=== PATIENT | male | born 1980 | race Caucasian/White ===

== ENCOUNTER 2017-08-03 10:10 | Emergency (ER) | payer BC ==
[2017-08-03] MEDS ORDERED: Ketorolac 60 MG/2 ML SDV IM ONE (10:50)
--- NOTE | 2017-08-03 11:06 | EDM.PDOC ---
ED HPI GENERAL MEDICAL PROBLEM - General Chief Complaint: Back Pain or Injury Stated Complaint: LOWER BACK PAIN Time Seen by Provider: 08/03/17 10:40 Source of Information: Reports: Patient History Limitations: Reports: No Limitations - History of Present Illness INITIAL COMMENTS - FREE TEXT/NARRATIVE: HISTORY AND PHYSICAL: History of present illness: [Patient comes to the emergency room complaining of low back pain. Does have been present since June 30. He has seen his chiropractor was done adjustments patient has not seen any improvement in his low back pain. He reports that he usually has a flareup of pain in his low back once a year, but it does not typically last this long. Pain is to the middle of his back and radiates bilaterally. Pain is in his buttocks and the back of both thighs. He denies radiation of pain down his lower leg or into his foot. Denies numbness and tingling. He's had no weakness to his lower extremities or feet. Denies difficulty with urinating and having bowel movements. No episodes of incontinence. No fever or chills. States she's otherwise felt well. Hx of sleep apnea.] Review of systems: As per history of present illness and below otherwise all systems reviewed and negative. Past medical history: As per history of present illness and as reviewed below otherwise noncontributory. Surgical history: As per history of present illness and as reviewed below otherwise noncontributory. Social history: No reported history of drug or alcohol abuse. Family history: As per history of present illness and as reviewed below otherwise noncontributory. Physical exam: HEENT: Atraumatic, normocephalic. Oral mucous membranes are pink and moist. Lungs: Clear to auscultation, breath sounds equal bilaterally. Heart: S1S2, regular rate and rhythm. Abdomen: Obese. Soft, nondistended, nontender. Pelvis: Stable nontender. Genitourinary: Deferred. Rectal: Deferred. Back: No suspicious rashes or lesions. No spinal tenderness w/ palpation. No CVA tenderness. Negative straight leg raise. Decreased ROM w/ back flexion and bilateral flexion. Patellar reflexes are 2+ and equal bilat. Extremities: Atraumatic, negative for cords or calf pain. Neurovascular unremarkable. Neuro: Awake, alert, oriented. Motor and sensory unremarkable throughout. Exam nonfocal. Diagnostics: [L/S spine x-rays] Therapeutics: [Toradol 60 mg IM] Impression: [low back pain] Plan: [Discussed w/ patient that x-rays show L5-S1 anterolisthesis. Recommend follow- up with PCP to discuss if MRI is needed versus PT. Continue [id number] analgesics when necessary. Return to ER as needed as discussed.] Definitive disposition and diagnosis as appropriate pending reevaluation and review of above. Lower Back Pain Score (Numeric/FACES): 8 - Related Data Allergies Allergy/AdvReac Type Severity Reaction Status Date / Time Purex Laundry Soap Allergy Rash Uncoded 08/03/17 10:26 Home Meds: Home Meds Albuterol Sulfate [Albuterol Sulfate HFA] 1 puff INH PRN 08/23/13 [History] Past Medical History - Past Health History Medical/Surgical History: Denies Medical/Surgical History Social & Family History - Family History Family Medical History: Noncontributory - Tobacco Use Smoking Status *Q: Light Tobacco Smoker Years of Tobacco use: 19 Packs/Tins Daily: 0.5 Used Tobacco, but Quit: No Second Hand Smoke Exposure: No - Caffeine Use Caffeine Use: Reports: None - Recreational Drug Use Recreational Drug Use: No ED ROS GENERAL - Review of Systems Review Of Systems: ROS reveals no pertinent complaints other than HPI. ED EXAM,LOWER BACK PAIN/INJURY - Physical Exam Exam: See Below Course - Vital Signs Last Recorded V/S: Last Vital Signs Temp 96.5 F 08/03/17 10:23 Pulse 89 08/03/17 10:23 Resp 20 08/03/17 10:23 BP 141/87 H 08/03/17 10:23 Pulse Ox 98 08/03/17 10:23 - Orders/Labs/Meds Meds: Medications Discontinued Medications Generic Name Dose Route Start Last Admin Trade Name Freq PRN Reason Stop Dose Admin Ketorolac Tromethamine 60 mg 08/03/17 10:50 08/03/17 11:15 Toradol IM 08/03/17 10:51 60 mg ONETIME ONE Administration Departure - Departure Time of Disposition: 12:10 Disposition: Home, Self-Care 01 Condition: Good Clinical Impression: Low back pain - Discharge Information Referrals: PCP,None [Primary Care Provider] - Forms: ED Department Discharge Additional Instructions: The following information is given to patients seen in the emergency department who are being discharged to home. This information is to outline your options for follow-up care. We provide all patients seen in our emergency department with a follow-up referral. The need for follow-up, as well as the timing and circumstances, are variable depending upon the specifics of your emergency department visit. If you don't have a primary care physician on staff, we will provide you with a referral. We always advise you to contact your personal physician following an emergency department visit to inform them of the circumstance of the visit and for follow-up with them and/or the need for any referrals to a consulting specialist. The emergency department will also refer you to a specialist when appropriate. This referral assures that you have the opportunity for follow-up care with a specialist. All of these measure are taken in an effort to provide you with optimal care, which includes your follow-up. Under all circumstances we always encourage you to contact your private physician who remains a resource for coordinating your care. When calling for follow-up care, please make the office aware that this follow-up is from your recent emergency room visit. If for any reason you are refused follow-up, please contact the [facility] emergency department at and asked to speak to the emergency department charge nurse. [address] [address] Follow-up with your local primary care provider or at the clinic listed above in 48-72 hours. Alternate Tylenol with ibuprofen. Heating pad or ice pack as needed. Return to ER as needed as discussed.
--- NOTE | 2017-08-03 11:52 | CR ---
EXAMINATION: Lumbar spine HISTORY: Low back pain COMPARISON: None TECHNIQUE: AP and lateral views FINDINGS: Minimal anterolisthesis of L5 on S1, otherwise the lumbar spinal alignment is normal. Minim al wedging of the L1 vertebral body. Vertebral body heights otherwise appear maintained. SI joints ar e symmetric. No fracture or acute osseous abdomen body. IMPRESSION: 1. Grade 1 anterolisthesis of L5 on S1, otherwise unremarkable lumbar spine.
== END 2017-08-03 12:28 | disposition home or self-care (01) ==
LOC: MW.ED 10:10
DX: M54.5 Low back pain (principal); F17.210 Nicotine dependence, cigarettes, uncomplicated
CPT/HCPCS: 72100; 96372; 99283; J1885

== ENCOUNTER 2022-01-06 16:08 | Emergency (ER) | payer BC | END 2022-01-06 20:45 | disposition home or self-care (01) | LOC: MW.ED 16:08 | DX: R60.0 Localized edema (principal); M79.89 Other specified soft tissue disorders; F17.210 Nicotine dependence, cigarettes, uncomplicated; Z91.048 Other nonmedicinal substance allergy status | CPT/HCPCS: 73610-26-LT; 73610-LT; 99283 ==

== ENCOUNTER 2023-05-29 12:26 | Emergency (ER) | payer BC ==
[2023-05-29] MEDS ORDERED: methylPREDNISolone Sodium Succinate 125 MG/2 ML SDV IM ONE (13:16)
[2023-05-29] MEDS ORDERED: Acetaminophen/HYDROcodone 325-5 MG Tab PO ONE (13:20)
== END 2023-05-29 13:59 | disposition home or self-care (01) ==
LOC: MW.ED 12:26
DX: M54.41 Lumbago with sciatica, right side (principal); J45.909 Unspecified asthma, uncomplicated; Z79.899 Other long term (current) drug therapy; Z91.048 Other nonmedicinal substance allergy status
CPT/HCPCS: 96372; 99283; A9270; J2930